=== PATIENT | female | born 1965 | race Caucasian/White ===

== ENCOUNTER 2018-03-14 10:16 | Emergency (ER) | payer MEDICAID ==
--- NOTE | 2018-03-14 13:14 | ED Physician Chart ---
ED Chief Complaint/HPI - Patient Information Date Seen:: 03/14/18 Time Seen:: 10:30 Chief Complaint:: Anxiety History of Present Illness:: onset x 3 days of anxiousness and nervousness; Hx of Anxiety Reaction Disorder; pt ran out of Klonopin 3 days ago; pt denies trauma, H/As, S/T, N/V, visual or gait changes, neck pain, weakness, dizziness, paresthesias, vertigo, cough, C/P , SOB, Abd. 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; LNMP: pt is post-menopausal and S /P Hysterectomy; pt denies SIs Allergies:: Allergies Allergy/AdvReac Type Severity Reaction Status Date / Time No Known Allergies Allergy Verified 03/14/18 10:22 Vitals:: Vital Signs - 8 hr 03/14/18 03/14/18 10:32 10:49 Temp 97.4 F 98.0 F HR 79 90 RR 16 18 BP 153/67 O2 Sat % 99 98 Historian:: Patient Review:: Nurse's Note Reviewed ED Review of Systems - Review of Systems General/Constitutional: No fever, No chills, No weight loss, No weakness, No diaphoresis, No edema, No loss of appetite Skin: No skin lesions, No rash, No bruising Head: No headache, No light-headedness Eyes: No loss of vision, No pain, No diplopia ENT: No earache, No nasal drainage, No sore throat, No tinnitus Neck: No neck pain, No swelling, No thyromegaly, No stiffness, No mass noted Cardio Vascular: No chest pain, No palpitations, No PND, No orthopnea, No edema Pulmonary: No SOB, No cough, No sputum, No wheezing GI: No nausea, No vomiting, No diarrhea, No pain, No melena, No hematochezia, No constipation, No hematemesis G/U: No dysuria, No frequency, No hematuria, No nacturia Printed Forms Proofreader: No vaginal discharge, No abnormal vaginal bleed, No contraction Musculoskeletal: No bone or joint pain, No back pain, No muscle pain Endocrine: No polyuria, No polydipsia Psychiatric: Prior psych history, No depression, Anxiety, No suicidal ideation, No homicidal ideation, No auditory hallucination, No visual hallucination Hematopoietic: No bruising, No lymphadenopathy Allergic/Immuno: No urticaria, No angioedema Neurological: No syncope, No focal symptoms, No weakness, No paresthesia, No headache, No seizure, No dizziness, No confusion, No vertigo ED Past Medical History - Past Medical History Obtainable: Yes Past Medical History: HTN Family History: HTN Social History: Non Smoker, No Alcohol, No Drug Use, Surgical History: Hysterectomy Psychiatricy History: Other (Anxiety Disorder) Medication: Reviewed Family Medical History - Family Member Father Ethnicity: Living Status: Still Living ED Physical Exam - Physical Examination General/Constitutional: Awake, Well-developed, well-nourished, Alert, No distress, GCS 15, Non-toxic appearing, Ambulatory Head: Atraumatic Eyes: Lids, conjuctiva normal, PERRL, EOMI Other Eyes comments:: PERRLA; Fundi: benign; EOMs: WNL Skin: Nl inspection, No rash, No skin lesions, No ecchymosis, Well hydrated, No lymphadenopathy ENMT: External ears, nose nl, TM canals nl, Nasal exam nl, Lips, teeth, gums nl , Oropharynx nl, Tonsils nl Neck: Nontender, Full ROM w/o pain, No JVD, No nuchal rigidity, No bruit, No mass, No stridor Other Neck comments:: supple; no meningeal signs; no cervical tenderness; no bruits Respiratory: Nl effort/Exclusion, Clear to Auscultation, No Wheeze/Rhonchi/Rales Cardio Vascular: RRR, No murmur, gallop, rubs, NL S1 S2, Carotid/Femoral/Distal pulses equal bilaterally GI: No tenderness/rebounding/guarding, No organomegaly, No hernia, Normal BS's, Nondistended, No mass/bruits, No McBurney tenderness, Rectum exam nl Other GI comments:: no pulsatile masses : No CVA tenderness Extremities: No tenderness or effusion, Full ROM, normal strength in all extremities, No edema, Normal digits & nails Neuro/Psych: Alert/oriented, DTR's symmetric, Normal sensory exam, Normal motor strength, Judgement/insight normal, Mood normal, Normal gait, No focal deficits Other Neuro/Psych comments:: no focal signs; MSE: WNL; Mood/Affect: Stable; no SIs Misc: Normal back, No paraspinal tenderness ED Septic Shock - . Is Septic Shock (SBP<90, OR Lactate>4 mmol\L) present?: No - <6hrs of presentation: Vital Signs: Vital Signs - 8 hr 03/14/18 03/14/18 10:32 10:49 Temp 97.4 F 98.0 F HR 79 90 RR 16 18 BP 153/67 O2 Sat % 99 98 ED Reassessment (Disposition) - Reassessment Reassessment:: pt is asymptomatic upon discharge Reassessment Condition:: Improved - Diagnosis Diagnosis:: Dx: Anxiety Reaction; Anxiety Disorder - Aftercare/Follow up Instructions Aftercare/Follow-Up Instructions:: Counseled pt regarding lab results/diagnosis & need follow up, Refer to Discharge Instructions, Counseled pt & family regarding lab results/diagnosis & need follow up Medication Prescribed:: Rx: Klonopin 1.0mg po bid prn anxiety (#10); take medications as prescribed - Patient Disposition Discharge/Transfer:: Home Condition at Disposition:: Stable, Improved (RTER prn if existing s/s reoccur and/or get worse and/or any other new s/s occur; ACIs given for all above Dx; Refer to Psychiatrist/Cutting And Splicing Supervisor [facility]; Refer to [facility]; F/U with PMD in one day or prn; RTER prn if concerned) ED Discharge Plan - Patient Disposition Admit/Discharge/Transfer: PT DISCHARGED HOME Condition at Disposition: Stable Instructions: Anxiety and Panic Attacks, [id number]
== END 2018-03-14 11:09 | disposition home or self-care (01) ==
LOC: ER 10:16
DX: F41.9 Anxiety disorder, unspecified (principal); I10 Essential (primary) hypertension; Z90.710 Acquired absence of both cervix and uterus
CPT/HCPCS: Z7502

== ENCOUNTER 2018-03-22 12:46 | Emergency (ER) | payer MEDICAID | END 2018-03-22 15:00 | disposition left against medical advice (07) | LOC: ER 12:46 | DX: Z76.0 Encounter for issue of repeat prescription (principal); Z53.21 Procedure and treatment not carried out due to patient leaving prior to being seen by health care provider ==

== ENCOUNTER 2018-07-20 22:40 | Emergency (ER) | payer MEDICAID ==
[2018-07-20] MEDS ORDERED: Sodium Chloride 0.9% 1,000 ML IV ONE (23:29)
[2018-07-20] MEDS ORDERED: Prochlorperazine 5 mg/mL 2mL Vial IVP STA (23:29)
--- NOTE | 2018-07-20 23:36 | ED Physician Chart ---
ED Chief Complaint/HPI - Patient Information Date Seen:: 07/20/18 Time Seen:: 23:15 Chief Complaint:: palpitation, chest pain, right knee pain History of Present Illness:: Patient had a myocardial infarction 05/19/2018 and once that was placed at [facility]. Since that she's had palpitations and sharp shooting chest pain. Patient also complains of a diffuse throbbing headache since this morning. She has also right knee pain and is scheduled for right knee surgery. Allergies:: Allergies Allergy/AdvReac Type Severity Reaction Status Date / Time No Known Allergies Allergy Verified 07/20/18 23:03 Vitals:: Vital Signs - 8 hr 07/20/18 22:55 Temp 98.4 F HR 75 RR 18 BP 146/78 O2 Sat % 98 Historian:: Patient Review:: Nurse's Note Reviewed ED Review of Systems - Review of Systems General/Constitutional: No fever, No chills Skin: No skin lesions Head: Headache Eyes: No loss of vision ENT: No earache Neck: No neck pain Cardio Vascular: Chest pain, Palpitations Pulmonary: No SOB GI: No nausea, No vomiting G/U: No dysuria Musculoskeletal: Bone or joint pain Endocrine: No polyuria, No polydipsia Psychiatric: No prior psych history Hematopoietic: No bruising Allergic/Immuno: No urticaria Neurological: No syncope ED Past Medical History - Past Medical History Past Medical History: CAD, Dyslipidemia, Other (anxiety) Family History: Heart disease, Diabetes Melitus Social History: Smoker Surgical History: other (coronary artery stent; tonsillectomy; cholecystectomy) Medication: Reviewed Family Medical History - Family Member Father History Unknown: Yes Ethnicity: Living Status: Still Living ED Physical Exam - Physical Examination General/Constitutional: Awake, Well-developed, well-nourished, Alert, No distress, GCS 15, Non-toxic appearing, Ambulatory Head: Atraumatic Eyes: Lids, conjuctiva normal, PERRL, EOMI Skin: Nl inspection, No rash, No skin lesions, No ecchymosis, Well hydrated, No lymphadenopathy ENMT: External ears, nose nl, Nasal exam nl, Lips, teeth, gums nl Neck: Nontender, Full ROM w/o pain, No JVD, No nuchal rigidity, No bruit, No mass, No stridor Respiratory: Nl effort/Exclusion, Clear to Auscultation, No Wheeze/Rhonchi/Rales Cardio Vascular: RRR, No murmur, gallop, rubs, NL S1 S2 GI: No tenderness/rebounding/guarding, No organomegaly, No hernia, Normal BS's, Nondistended, No mass/bruits, No McBurney tenderness : No CVA tenderness Other Extremities comments:: Right knee: About 25 of flexion only; point tenderness 5:00 adjacent to the patella; collateral and cruciate ligaments are stable Neuro/Psych: Alert/oriented, DTR's symmetric, Normal sensory exam, Normal motor strength, Judgement/insight normal, Mood normal, Normal gait, No focal deficits Misc: Normal back, No paraspinal tenderness ED Assessment - Assessment General Assessment: At about 25 minutes after the Compazine 10 mg intravenously was given patient's headache was not improved. She states that morphine usually takes her migraine headache right away so she will given morphine sulfate 4 mg intravenously. She says she has a friend to pick her up. At 0050 patient's headache was gone and she wished to leave without having EKG done ED Septic Shock - . Is Septic Shock (SBP<90, OR Lactate>4 mmol\L) present?: No - <6hrs of presentation: Vital Signs: Vital Signs - 8 hr 07/20/18 22:55 Temp 98.4 F HR 75 RR 18 BP 146/78 O2 Sat % 98 ED Reassessment (Disposition) - Reassessment Reassessment Condition:: Improved - Diagnosis Diagnosis:: Headache; right knee pain; palpitations - Aftercare/Follow up Instructions Aftercare/Follow-Up Instructions:: Refer to Discharge Instructions - Patient Disposition Discharge/Transfer:: Home Condition at Disposition:: Stable, Improved
[2018-07-20] MEDS ORDERED: Prochlorperazine 5 mg/mL 2mL Vial ONE (23:53)
[2018-07-21] MEDS ORDERED: Morphine Sulfate 4 mg/mL 1mL Syr IV STA (00:23)
[2018-07-21] MEDS ORDERED: Morphine Sulfate 4 mg/mL 1mL Syr ONE (00:28)
== END 2018-07-21 00:55 | disposition home or self-care (01) ==
LOC: ER 22:40
DX: R00.2 Palpitations (principal); R51 Headache; M25.561 Pain in right knee; I25.10 Atherosclerotic heart disease of native coronary artery without angina pectoris; E78.5 Hyperlipidemia, unspecified; F17.200 Nicotine dependence, unspecified, uncomplicated
CPT/HCPCS: 96374; 96375; J0780; Z7502